=== PATIENT | male | born 1975 | race Asian ===

== ENCOUNTER 2016-12-06 22:12 | Emergency (ER) | payer OTHER ==
[~2016-12-06] VITALS: Ht 172.7 cm; Wt 59.9 kg
[~2016-12-06 22:12] MED LIST: DELTASONE20 MG PO
--- NOTE | 2016-12-06 23:09 | ED MVC/FALL/TRAUMA COMPLAINT ---
History of Present Illness General Chief Complaint: Shoulder Injury Stated Complaint: LEFT SHOULDER PAIN S/P FALL Source: patient Exam Limitations: no limitations Vital Signs & Intake/Output Vital Signs & Intake/Output Vital Signs Date Time Temp Pulse Resp B/P Pulse O2 O2 Flow FiO2 Ox Delivery Rate 12/06 2335 98.2 90 18 138/72 100 Room Air 12/06 2214 97.7 92 18 159/88 99 Room Air ED Intake and Output 12/07 0000 12/06 1200 Intake Total Output Total Balance Patient 132 lb Weight Allergies Coded Allergies: No Known Allergies (05/16/16) Reconcile Medications Meloxicam (Mobic) 15 MG TABLET 1 TAB PO DAILY PRN PAIN/INFLAMMATION Prednisone (Deltasone) 20 MG TABLET 3 TAB PO DAILY RASH Triage Note: PT STATES THAT HE TRIPPED AND FELL HURTING HIS L SHOULDER AND L SIDE OF HIS HEAD Triage Nurses Notes Reviewed? yes HPI: Patient is a 41-year-old male presents complaining of left shoulder pain status post fall. Patient was pushing a grocery cart at approximately 7 PM this evening when he hit a pothole and fell. Patient reports he hit the left side of his head, his left shoulder and bilateral knees. Patient took a nap after the fall, Welk in the head pain and lower extremity pain improved. Patient continues with left shoulder pain which is moderate at rest, worsens with movement. Patient has not taken any medication for his symptoms. Patient denies loss of consciousness, numbness, weakness, blurred vision, vomiting. (ARMANDO MELCHOR) Past History Travel History Traveled to [place] past 21 day No Medical History Any Pertinent Medical History? 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 No (ARMANDO MELCHOR) Review of Systems Review of Systems Constitutional: Denies: chills, fever. Eyes: Reports: no symptoms. Ears, Nose, Throat, Mouth: Reports: no symptoms. Respiratory: Reports: no symptoms. Cardiovascular: Reports: no symptoms. Denies: chest pain, syncope. Gastrointestinal/Abdominal: Denies: abdominal pain, vomiting. Genitourinary: Reports: no symptoms. Musculoskeletal: Reports: see HPI. Skin: Reports: no symptoms. Neurological/Psychological: Reports: headache (resolved). Denies: numbness, paresthesia. (ARMANDO MELCHOR) Physical Exam Physical Exam General Appearance: well developed/nourished, alert, awake Head: 1 cm hematoma posterior to the left ear. Nontender, no palpable step-offs or deformities Eyes: Bilateral: normal appearance, PERRL, EOMI. Ears, Nose, Throat, Mouth: hearing grossly normal, moist mucous membrane Neck: normal inspection, supple, full range of motion, no midline tenderness, no paraspinal tenderness Respiratory: chest non-tender, no respiratory distress Peripheral Pulses: 2+ radial (R), 2+ radial (L) Back: normal inspection, normal range of motion, no vertebral tenderness Extremities: tenderness superior to the left clavicle. Full range of motion of all 4 extremities. Pain to left shoulder increases with full abduction and flexion. 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 No Severe Sepsis Present: No Septic Shock Present: No (ARMANDO MELCHOR) Progress Differential Diagnosis: C/T/L spine injury, ext injury, ICH, pelvis injury, pnemothorax, spinal cord injury, skull fracture Plan of Care: Orders Procedure Date/time Status XRY-SHOULDER COMPLETE-LEFT 12/06 2218 Active Patient declined pain medication on initial exam. No headache currently, no acute neurologic abnormalities. Neuro imaging deferred secondary to exam. Patient instructed to return immediately if he develops any severe headache, vomiting, blurred vision. Results of shoulder x- ray discussed with patient, appears stable for conservative management and follow-up with his primary care doctor if no improvement. (ARMANDO MELCHOR) Diagnostic Imaging: Viewed by Me: Radiology Read. Discussed w/RAD: Radiology Read. Radiology Impression: PATIENT: ANA VÁZQUEZ V PRESENT AGE: 41 PATIENT ACCOUNT NO: [id number] : 77 LOCATION: [facility] ORDERING PHYSICIAN: NIKITA ROCK DO SERVICE DATE: 12/06/16 EXAM TYPE: RAD - XRY-SHOULDER COMPLETE-LEFT EXAMINATION: XR SHOULDER, LEFT CLINICAL INFORMATION: Left shoulder pain following fall. COMPARISON: None. TECHNIQUE: AP external rotation, Grashey, scapular Y, and axillary views of the left shoulder. FINDINGS: The bones and soft tissues appear unremarkable. No acute fracture of the left shoulder is identified. Glenohumeral and acromioclavicular alignment are anatomic in alignment, with normal joint spaces. No abnormal soft tissue calcifications. IMPRESSION: No acute fracture or dislocation of the left shoulder. 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 <Electronically signed in Other Vendor System> SIGNED BY: SHELDON NELSON MD 12/06/162315 (ARMANDO MELCHOR) Departure Departure Time of Disposition: 2326 Disposition: HOME OR SELF CARE Condition: Stable Clinical Impression Primary Impression: Left shoulder strain Secondary Impressions: Head contusion Referrals: PATIENT HAS NO PRIMARY CARE DR (PCP/Family) Additional Instructions: Rest, ice for 20 minutes 4-5 times a day for 2 days. After 2 days which to heat to the area. Follow-up with her primary doctor if no improvement within 2-3 days. Return to the emergency department if numbness, weakness, severe headache , blurred vision, vomiting, or worsening of symptoms. Departure Forms: Customer Survey General Discharge Information Prescriptions: Current Visit Scripts Meloxicam (Mobic) 1 TAB PO DAILY PRN PAIN/INFLAMMATION #10 TAB (ARMANDO MELCHOR) PA/SWEEPING COMPOUND BLENDER Co-Sign Statement Statement: ED Attending supervision documentation- [] I saw and evaluated the patient. I have also reviewed all the pertinent lab results and diagnostic results. I agree with the findings and the plan of care as documented in the PA's/SWEEPING COMPOUND BLENDER's documentation. [x] I have reviewed the ED Record and agree with the PA's/SWEEPING COMPOUND BLENDER's documentation. [] Additions or exceptions (if any) to the PAs/SWEEPING COMPOUND BLENDER's note and plan are summarized below: [] (RAJWINDER ZAVALA,HANS Hudson)
--- NOTE | 2016-12-06 23:16 | RADIOLOGY REPORT ---
EXAMINATION: XR SHOULDER, LEFT CLINICAL INFORMATION: Left shoulder pain following fall. COMPARISON: None. TECHNIQUE: AP external rotation, Grashey, scapular Y, and axillary views of the left shoulder. FINDINGS: The bones and soft tissues appear unremarkable. No acute fracture of the left shoulder is identified. Glenohumeral and acromioclavicular alignment are anatomic in alignment, with normal joint spaces. No abnormal soft tissue calcifications. IMPRESSION: No acute fracture or dislocation of the left shoulder.
[2016-12-06] MEDS ORDERED: MOBIC15 M1 PO (23:29)
[2016-12-06 23:35] VITALS: BP 138/72
== END 2016-12-06 23:35 ==
LOC: ERH 22:12
DX: S46.912A Strain of unspecified muscle, fascia and tendon at shoulder and upper arm level, left arm, initial encounter (principal); S00.93XA Contusion of unspecified part of head, initial encounter; W19.XXXA Unspecified fall, initial encounter
CPT/HCPCS: 73030-LT

== ENCOUNTER 2018-03-30 17:18 | Emergency (ER) | payer OTHER ==
[~2018-03-30] VITALS: Ht 172.7 cm; Wt 59.4 kg
[~2018-03-30 17:18] MED LIST changes: +MOBIC15 M1 PO
--- NOTE | 2018-03-30 17:39 | ED GI/GU/ABDOMINAL COMPLAINT ---
History of Present Illness General Chief Complaint: General Adult Stated Complaint: FABIAN/VOMITING AFTER PHYSICAL EXCERTION OUTSIDE Source: patient, family Exam Limitations: no limitations Vital Signs & Intake/Output Vital Signs & Intake/Output Vital Signs Date Time Temp Pulse Resp B/P B/P Pulse O2 O2 Flow FiO2 Mean Ox Delivery Rate 03/30 1723 97.2 69 18 127/83 96 Room Air Allergies Coded Allergies: No Known Allergies (05/16/16) Reconcile Medications Meloxicam (Mobic) 15 MG TABLET 1 TAB PO DAILY PRN PAIN/INFLAMMATION Prednisone (Deltasone) 20 MG TABLET 3 TAB PO DAILY RASH Triage Note: PT STATES HE WAS HAVING PROBLEMS SLEEPING LAST NIGHT. PT STATES HE WAS OUTSIDE TODAY TILL 1230 AND HE STARTED GETTING A FABIAN. PT STATES HE DIDN'T FEEL LIKE EATING. PT REPORTS WHEN HE HAD A MOUTH FULL OF RICE HE VOMITED. PT STATES HE THEN SLEPT FOR 1.5 HOURS AND HAD GATORAIDE AND VOMITED AGAIN. Triage Nurses Notes Reviewed? yes HPI: Patient states that over the past week he has not been eating the way he normally does. This morning he woke up and had a posterior (5:00 in the morning. He then went and played cricket from 9 to 12:30. When he got home he had a severe headache and felt nauseous. He began vomiting. Patient laid down and fell asleep. It and when he woke up his headache was better however he is still vomiting. Patient denies any abdominal pain. Patient states he feels very thirsty. There are no fevers or chills. There is no neck pain. Past History Travel History Traveled to [place] past 21 day No Medical History Any Pertinent Medical History? 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 No Review of Systems Review of Systems Constitutional: Reports: no symptoms. EENTM: Reports: no symptoms. Respiratory: Reports: no symptoms. Cardiovascular: Reports: no symptoms. GI: Reports: see HPI, nausea, vomiting. Genitourinary: Reports: no symptoms. Musculoskeletal: Reports: no symptoms. Skin: Reports: no symptoms. Neurological/Psychological: Reports: see HPI, headache. Hematologic/Endocrine: Reports: no symptoms. Immunologic/Allergic: Reports: no symptoms. All Other Systems: Reviewed and Negative Physical Exam Physical Exam General Appearance: well developed/nourished, alert, awake, anxious, mild distress Head: atraumatic, normal appearance Eyes: Bilateral: PERRL, EOMI. Ears, Nose, Throat, Mouth: hearing grossly normal, DRY MUCOSA Neck: normal inspection, supple, full range of motion, NO MENENGEAL SIGNS Respiratory: normal breath sounds, chest non-tender, no respiratory distress, lungs clear Cardiovascular: regular rate/rhythm, normal peripheral pulses Gastrointestinal: normal bowel sounds, soft, non-tender, no organomegaly Back: normal inspection, normal range of motion Extremities: normal range of motion Neurologic/Psych: no motor/sensory deficits, awake, alert, oriented x 3, normal gait, normal mood/affect Skin: intact, normal color, warm/dry Core Measures ACS in differential dx? No Sepsis Present: No Sepsis Focused Exam Completed? No Progress Differential Diagnosis: DEHYDRATION Plan of Care: Orders Procedure Date/time Status LACTIC ACID 03/30 2022 Active URINALYSIS 03/30 1722 Active LACTIC ACID 03/30 1722 Complete COMPREHENSIVE METABOLIC PANEL 03/30 1722 Complete CBC WITHOUT DIFFERENTIAL 03/30 1722 Complete Current Medications Sig/Vane Start time Last Medication Dose Stop Time Status Admin Ketorolac 30 MG ONCE ONE 03/30 1900 UNVr Tromethamine 03/30 1901 (Toradol) Sodium Chloride 1,000 ML BOLUS ONE 03/30 1900 UNVr (Normal Saline 0.9%) 03/30 1959 Laboratory Tests 03/30/18 1732: Anion Gap 11, Estimated GFR > 60, BUN/Creatinine Ratio 14.0, Glucose 134 H, Lactic Acid 1.1, Calcium 9.3, Total Bilirubin 0.6, AST 34, ALT 42, Alkaline Phosphatase 100, Total Protein 7.3, Albumin 4.3, Globulin 3.0, Albumin/Globulin Ratio 1.4, CBC w Diff NO MAN DIFF REQ, RBC 4.79, MCV 88.2, MCH 29.3, MCHC 33.2, RDW 13.3, MPV 8.1, Gran % 83.5 H, Lymphocytes % 11.4 L, Monocytes % 4.6, Eosinophils % 0.2, Basophils % 0.3, Absolute Granulocytes 11.3 H, Absolute Lymphocytes 1.5, Absolute Monocytes 0.6, Absolute Eosinophils 0, Absolute Basophils 0 Initial ED EKG: none Departure Departure Disposition: HOME OR SELF CARE Condition: Stable Clinical Impression Primary Impression: Heat exhaustion Referrals: Padmini Fam MD (PCP/Family) Additional Instructions: Drink plenty of fluids. Return if symptoms worsen or for any concerns. Departure Forms: Customer Survey General Discharge Information
[2018-03-30 17:42] LABS: ABSOLUTE BASOPHIL COUNT 0 /CUMM (0.0-0.2); ABSOLUTE EOSINOPHIL COUNT 0 /CUMM (0.0-0.7); ABSOLUTE GRANULOCYTE CT 11.3 /CUMM (1.4-6.5); ABSOLUTE LYMPH COUNT 1.5 /CUMM (1.2-3.4); ABSOLUTE MONOCYTE COUNT 0.6 /CUMM (0.10-0.60); BASOPHIL % 0.3 % (0.0-2.0); EOSINOPHIL % 0.2 % (0-5); GRANULOCYTE % 83.5 % (42.2-75.2); HEMATOCRIT 42.2 % (42-52); MEAN CORPUSCULAR HGB 29.3 PG (27.0-31.0); MEAN CORPUSCULAR HGB CONC 33.2 G/DL (33.0-37.0); MEAN CORPUSCULAR VOLUME 88.2 FL (80.0-94.0); MEAN PLATELET VOLUME 8.1 FL (7.4-10.4); PLATELET COUNT 215 /CUMM (130-400); RBC DISTRIBUTION WIDTH 13.3 % (11.5-14.5); RED BLOOD CELL CT 4.79 /CUMM (4.70-6.10); WHITE BLOOD CELL COUNT 13.6 /CUMM (4.8-10.8)
[2018-03-30 20:25] VITALS: BP 124/79
== END 2018-03-30 20:36 ==
LOC: ERH 17:18
PROVIDERS: Physician Assistant Medical
DX: T67.5XXA Heat exhaustion, unspecified, initial encounter (principal)
CPT/HCPCS: 96374; 96375; J1885; J2405